=== PATIENT | female | born 1995 | race Caucasian/White ===

== ENCOUNTER → 2024-06-25 | Outpatient (CLI) | payer BC, SELFPAY ==
[2024-06-25 10:33] LABS: Misc Send Out* See Sep Rpt
[2024-06-25 11:11] LABS: Misc Send Out* See Sep Rpt
[2024-06-25 11:39] LABS: Basophils % (Auto) 1 % (0-2.5); Eosinophils # (Auto) 0.2 Thou/mm3 (0.0-0.5); Eosinophils % (Auto) 2 % (0-10); Hematocrit 42.7 % (36.0-46.0); Hemoglobin 13.9 g/dL (12.0-16.0); Immature Granulocytes % (Auto) 0 % (0-0); Immature Granulocytes Auto 0.02 Thou/mm3 (0.00-0.00); Lymphocytes % (Auto) 46 % (10-50); Mean Corpuscular HGB Conc 32.6 g/dl (31.0-37.0); Mean Corpuscular Hemoglobin 28.6 pg (25.0-35.0); Mean Corpuscular Volume 88 fL (80-100); Monocytes # (Auto) 0.4 Thou/mm3 (0.0-0.8); Monocytes % (Auto) 6 % (0-12); Neutrophils % (Auto) 45 % (37-80); Nucleated Red Blood Cell % 0 /100 WBC (0); Platelet Count 310 Thou/mm3 (140-440); RDW Standard Deviation 42.6 fL (36.4-46.3); Red Blood Count 4.86 Miln/mm3 (4.00-5.20); White Blood Count 6.6 Thou/mm3 (3.6-11.0)
[2024-06-25 11:43] LABS: Partial Thromboplastin Time 28.6 Seconds (22.0-36.0); Prothrombin Time 10.7 Seconds (9.0-12.2)
[2024-06-25 11:59] LABS: Sed Rate (ESR) 4 mm/hr (0-20)
[2024-06-25 12:21] LABS: HCG,Qualitative Serum Negative
[2024-06-25 12:22] LABS: Alanine Aminotransferase 18 U/L (10-49); Albumin, Serum 4.3 gm/dL (3.5-5.0); Albumin/Globulin Ratio 1.9 (1.2-2.2); Alkaline Phosphatase 80 U/L (46-116); Anion Gap 7 (7-16); Aspartate Amino Transferase 15 U/L (0-34); BUN/Creatinine Ratio 19 Ratio (12-20); Bilirubin,Total 0.5 mg/dL (0.3-1.2); Blood Urea Nitrogen 13 mg/dL (9-23); Calcium 9.1 mg/dL (8.3-10.6); Calcium (Corrected) 9.1 mg/dL (8.5-10.1); Carbon Dioxide 28.4 mMol/L (20.0-31.0); Chloride 108 mMol/L (98-107); Creatinine (Component) 0.7 mg/dL (0.6-1.3); Ferritin 39 ng/mL (7.3-270.7); Globulin 2.3 gm/dL (2.3-3.5); Glucose 90 mg/dL (74-106); Osmolality,Calculated 285 (275-295); Potassium 4.2 mMol/L (3.4-5.1); Sodium 143 mMol/L (136-145); Thyroid Stimulating Hormone 1.42 uIU/mL (0.55-4.78); Total Protein 6.6 gm/dL (5.7-8.2); eGFR > 60 See Note
[2024-06-25 13:01] LABS: Total Iron Binding Capacity 306 mcg/dL (250-425)
[2024-06-25 13:43] LABS: C-Reactive Protein 0.5 mg/dL (0.0-0.9); Cardiac Risk Estimate 3.4 RATIO (3.7-5.6); Cholesterol 155 mg/dL (132-200); HDL Cholesterol 45 mg/dL (40-60); LDL Cholesterol,Calculated 83 mg/dL (0-130); Triglycerides 134 mg/dL (30-150)
[2024-06-25 13:46] LABS: Glucose Estimated Average 103 mg/dL (80-131); Hemoglobin A1C 5.2 % Hgb (4.8-6.0)
[2024-06-25 13:56] LABS: Follicle Stimulating Hormone 5.96 mIU/mL (See Note)
== END | disposition home or self-care (01) ==
LOC: COPL 10:04
PROVIDERS: PCP Nurse Practitioner Family; Referring Provider Nurse Practitioner Family; Visit Provider Nurse Practitioner Family
DX: Z32.00 Encounter for pregnancy test, result unknown (principal); E28.2 Polycystic ovarian syndrome; D64.9 Anemia, unspecified; O03.9 Complete or unspecified spontaneous abortion without complication; D89.9 Disorder involving the immune mechanism, unspecified
CPT/HCPCS: 36415; 80053; 80061; 82157; 82627; 82670; 82728; 83001; 83002; 83036; 83090; 83550; 83921; 84144; 84146; 84402; 84403; 84443; 84466; 84703; 85025; 85610; 85652; 85730; 86038; 86140; 86376